=== PATIENT | female | born 1990 | race Caucasian/White ===

== ENCOUNTER 2021-03-17 12:58 | Emergency (ER) | payer BC ==
--- OUTSIDE RECORDS SUMMARY | 2021-03-17 13:04 | XMS REPORT | Continuity of Care Document ---
:1990 Author Organization [facility] t Address [address] [place] [address] Care Team Providers Name Role Phone Asked, Pcp Primary Care Physician Unavailable Provider, Urgent Care Attending Clinician Unavailable Balaji GILLETTE, E Attending Clinician Problems This patient has no known problems. Allergies, Adverse Reactions, Alerts This patient has no known allergies or adverse reactions. Family History Family Member Diagnosis Comments Start Date Stop Date Source Natural mother Cancer [facility] Social History Social Habit Start Date Stop Date Quantity Comments Source Alcohol intake 2017-04-06 2017-04-06 Current drinker Alannaht on Mandaen 00:00:00 00:00:00 of alcohol (finding) Sex Ass[birth year] [facility] ethodist 00:00:00 00:00:00 Smoking Status Start Date Stop Date Source Never smoker Britt Methodis t Medications This patient has no known medications. Procedures This patient has no known procedures. Plan of Care Planned Activity Planned Date Details Comments Source Future Scheduled 2021-04-17 INFLUENZA VACCINE Radha n Mandaen Test 00:00:00 [code = INFLUENZA VACCINE] Future Scheduled 2009-01-25 Screening for [facility] thodist Test 00:00:00 malignant neoplasm of cervix (procedure) [code = 761680349] Future Scheduled 2000 COVID-19 VACCINE (1) Dayday deyanira Mandaen Test 00:00:00 [code = COVID-19 VACCINE (1)] Encounters Start End Encounter Admission Attending Care Care Encounter Source Date/Time Date/Time Type Type Clinicians Facility Department ID 2021-03-13 2021-03-13 Urgent Poonam WVJAY [id number] 13:34:57 15:56:38 [facility] [id number] Care [place] [id number] Professio [phone] nal [address] 2021-03-13 2021-03-13 Telephone Balaji [facility] [id number] 00:00:00 00:00:00 [facility] [id number] [place] [id number] Professio [phone] nal [address] Results This patient has no known results.
[2021-03-17 13:57] LABS: Basophils % 0.3 % (0-1.3); Hematocrit 33.1 % (36.0-45.0); Lymphocytes % 13.7 % (15.3-44.8); MPV 7.2 fL (7.6-11.3); RBC Red Blood Cell Count 4.09 M/uL (3.86-4.86)
[2021-03-17 14:10] LABS: Urine Blood 3+ (Negative); Urine Glucose Negative (Negative); Urine Protein 3+ (Negative); Urine pH 6.5 (5.0-7.0)
[2021-03-17 14:16] LABS: ALT/SGPT 37 U/L (12-78); AST/SGOT 26 U/L (15-37); Albumin 3.2 g/dL (3.4-5.0); Alkaline Phosphatase 108 U/L (45-117); BUN Blood Urea Nitrogen 11 mg/dL (7-18); Bicarbonate 26 mmol/L (21-32); Bilirubin Direct 0.3 mg/dL (0-0.2); Bilirubin Total 0.5 mg/dL (0.2-1.0); Glucose Level 142 mg/dL (74-106); Lipase 73 U/L (73-393); Protein, Total 7.5 g/dL (6.4-8.2); Sodium Level 136 mmol/L (136-145)
[2021-03-17] MEDS ORDERED: NA CHLORIDE 0.9% 1,000 ML ONE (14:33)
[2021-03-17 14:46] LABS: Urine Bacteria <20 /HPF (<20); Urine Mucus 1+ /HPF (NONE SEEN)
--- NOTE | 2021-03-17 16:25 | RAD REPORT ---
EXAM DESCRIPTION: CT - Abdomen Pelvis W Contrast - 03/17/2021 4:09 pm CLINICAL HISTORY: ABD PAIN COMPARISON: No comparisons TECHNIQUE: Biphasic, helical CT imaging of the abdomen and pelvis was performed following 100 ml non -ionic IV contrast. No oral contrast given. All CT scans are performed using dose optimization technique as appropriate and may include automated exposure control or mA/KV adjustment according to patient size. FINDINGS: No suspicious findings in the lung bases. The liver, spleen, and pancreas show no suspicious findings. Gallbladder and biliary tree are also wi thout suspicious finding. Moderate severity diminished attenuation involves a substantial portion of the right kidney. No necro tic or abscessed component. Only minimal stranding is seen in the perinephric fat. No hydronephrosis of either kidney. No obstructing or nonobstructing calculi. No enhancement abnormality of the left ki dney. No solid mass lesions seen. No bladder abnormalities. No adrenal abnormalities. No uterine or right ovary abnormality identified. Left ovary contains a 2.7 centimeter cyst along wit h additional small follicles. Physiologic quantity of free fluid is present in the cul de sac. No dilated bowel loops or bowel wall thickening. No free air, free fluid or inflammatory stranding. No mass or bulky lymphadenopathy. There is a normal variant laxity of the anterior abdominal wall wi th a anterior convex bowing that extends to the skin surface at the umbilicus. No suspicious bony findings. IMPRESSION: Moderate severity right-sided pyelonephritis and right ureteritis. No abscess or emergen t complication.
[2021-03-17] MEDS ORDERED: CEFTRIAXONE/SWI 1gm 2 GM/20 ML SYR ONE (17:10)
--- NOTE | 2021-03-17 17:33 | EDPHYS ---
Physician Documentation [facility] Name: Carlee Garay Age: 31 yrs Sex: Female : 1990 Arrival Date: 03/17/2021 Time: 13:00 Bed 26 Private MD: ED Physician Dimitrios Phillip HPI: 03/17 14:49 This 31 yrs old Female presents to ER via Ambulatory with complaints of Flank jmm Pain. 14:49 Onset: The symptoms/episode began/occurred gradually, 5 day(s) ago. Modifying factors: jmm The symptoms are alleviated by nothing. the symptoms are aggravated by nothing. Associated signs and symptoms: Pertinent positives: decreased appetite. The patient has not experienced similar symptoms in the past. This is a 31 year old female with no chronic medical conditions that presents to the ED with complaints of right sided back pain which radiates from the low back top the mid back. Denies vomiting, diarrhea but states having a decreased appetite. Denies abdominal pain. . 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 - Social history:: Smoking status: Patient denies any tobacco usage or history of. ROS: 14:49 Constitutional: Negative for fever, chills, and weight loss, Cardiovascular: Negative jmm for chest pain, palpitations, and edema, Respiratory: Negative for shortness of breath, cough, wheezing, and pleuritic chest pain. 14:49 Back: Positive for pain at rest. 14:49 All other systems are negative. Exam: 14:49 Constitutional: This is a well developed, well nourished patient who is awake, alert, jmm and in no acute distress. Head/Face: atraumatic. Eyes: EOMI, no conjunctival erythema appreciated ENT: Moist Mucus Membranes Neck: Trachea midline, Supple Chest/axilla: Normal chest wall appearance and motion. Cardiovascular: Regular rate and rhythm. No edema appreciated Respiratory: Normal respirations, no respiratory distress appreciated Abdomen/GI: Non distended, soft 14:49 Skin: General appearance color normal MS/ Extremity: Moves all extremities, no obvious deformities appreciated, no edema noted to the lower extremities Neuro: Awake and alert, normal gait Psych: Behavior is normal, Mood is normal, Patient is cooperative and pleasant 14:49 Back: CVA tenderness, that is mild, is noted on the right. Vital Signs: 13:14 BP 127 / 91; Pulse 119; Resp 18; Temp 97.4; Pulse Ox 99% on R/A; Weight 64.41 kg; ph Height 5 ft. 3 in. (160.02 cm); 13:48 BP 127 / 100; Pulse 104; Resp 18; Pulse Ox 100% on R/A; Pain 8/10; ld1 15:22 BP 118 / 87; Pulse 89; Resp 18; Pulse Ox 100% ; ld1 16:50 BP 120 / 84; Pulse 88; Resp 18; Pulse Ox 100% ; ld1 13:14 Body Mass Index 25.15 (64.41 kg, 160.02 cm) ph MDM: 13:13 Patient medically screened. ankur 17:29 Data reviewed: vital signs, nurses notes. Counseling: I had a detailed discussion with rhett the patient and/or guardian regarding: the historical points, exam findings, and any diagnostic results supporting the discharge/admit diagnosis, lab results, radiology results, the need for outpatient follow up, to return to the emergency department if symptoms worsen or persist or if there are any questions or concerns that arise at home. ED course: Patient is alert and non toxic in appearance in the ED. No signs of sepsis. Patient is advised to follow up with pcp for further evaluation. Patient understood and agrees with the plan of care. . 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 [facility] 03/17 13:39 Order name: Basic Metabolic Panel; Complete Time: 14:25 [facility] 03/17 13:39 Order name: CBC with Diff; Complete Time: 13:59 [facility] 03/17 13:39 Order name: Hepatic Function; Complete Time: 14:25 [facility] 03/17 13:39 Order name: Lipase; Complete Time: 14:25 [facility] 03/17 14:10 Order name: Urine Microscopic Only [facility] 03/17 14:10 Order name: Urine Culture [facility] 03/17 13:39 Order name: IV Saline Lock; Complete Time: 13:48 [facility] 03/17 13:39 Order name: Labs collected and sent; Complete Time: 13:48 [facility] 03/17 13:39 Order name: Urine Dipstick-Ancillary (obtain specimen); Complete Time: 14:10 [facility] 03/17 14:10 Order name: Urine Dipstick-Ancillary; Complete Time: 14:25 [facility] 03/17 14:10 Order name: Urine Microscopic Only; Complete Time: 14:49 [facility] 03/17 15:32 Order name: CT Abd/Pelvis - IV Contrast Only; Complete Time: 16:40 [facility] 03/17 13:39 Order name: Urine Test (obtain specimen); Complete Time: 14:10 [facility] Administered Medications: 14:15 Drug: NS 0.9% 1000 ml Route: IV; Rate: 1 bolus; Site: right antecubital; ld1 16:52 Follow up: Response: No adverse reaction; IV Status: Completed infusion ld1 16:52 Drug: Rocephin (cefTRIAXone) 2 grams Route: IV; Rate: calculated rate; Site: right ld1 antecubital; Disposition: 03/18 07:33 Co-signature as Attending Physician, Dimitrios Phillip MD I agree with the assessment and ankur plan of care. Disposition Summary: 03/17/21 17:32 Discharge Ordered [facility]: [facility] Condition: Stable [facility] Diagnosis - Pyelonephritis acute [facility]up: [facility] - With: Private Physician - When: 2 - 3 days - Reason: Recheck today's complaints, Continuance of care, Re-evaluation by your physician Discharge Instructions: - Discharge Summary Sheet [facility] - Pyelonephritis, Adult [facility] Forms: - Medication Reconciliation Form [facility] - Thank You Letter [facility] - Antibiotic Education [facility] - Prescription Opioid Use [facility] Prescriptions: - Tramadol 50 mg Oral Tablet - take 1 tablet by ORAL route every 8 hours as needed; 12 tablet; Refills: 0, [facility] Product Selection Permitted - cefpodoxime 200 mg Oral Tablet - take 1 tablet by ORAL route every 12 hours for 10 days with food; 20 tablet; [facility] Refills: 0, Product Selection Permitted Signatures: Dispatcher [employer] Dimitrios Don MD MD cha Mickail, Joel, PA PA Vi Cristina RN RN Zaida Jiang RN RN ld1
--- NOTE | 2021-03-17 17:33 | ER ---
Nurse's Notes [facility] Name: Carlee Garay Age: 31 yrs Sex: Female : 1990 Arrival Date: 03/17/2021 Time: 13:00 Bed 26 Private MD: Diagnosis: Pyelonephritis acute Presentation: 03/17 13:14 Chief complaint: Patient states: R low back pain since last week, has been seen at urgent care and PCP but has not found cause. Also c/o chills, fatigue, N/V, denies urinary symptoms. Coronavirus screen: Client denies travel out of the [place] in the last 14 days. At this time, the client does not indicate any symptoms associated with coronavirus-19. Ebola Screen: No symptoms or risks identified at this time. Initial Sepsis Screen: Does the patient meet any 2 criteria? No. Patient's initial sepsis screen is negative. Does the patient have a suspected source of infection? No. Patient's initial sepsis screen is negative. Risk Assessment: Do you want to hurt yourself or someone else? Patient reports no desire to harm self or others. Onset of symptoms was March 17, 2021. 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 - Social history:: Smoking status: Patient denies any tobacco usage or history of. Screenin:48 Abuse screen: Denies threats or abuse. Denies injuries from another. Nutritional ld1 screening: No deficits noted. Tuberculosis screening: No symptoms or risk factors identified. Fall Risk None identified. Assessment: 13:48 General: Appears in no apparent distress. comfortable, Behavior is calm, cooperative, ld1 appropriate for age. Pain: Complains of pain in right low back Pain does not radiate. Pain currently is 8 out of 10 on a pain scale. Quality of pain is described as throbbing, Pain began 2-3 days ago. Is continuous. Neuro: Level of Consciousness is awake, alert, obeys commands, Oriented to person, place, time, situation. Cardiovascular: Capillary refill < 3 seconds Patient's skin is warm and dry. Respiratory: Airway is patent Respiratory effort is even, unlabored, Respiratory pattern is regular, symmetrical. GI: Abdomen is flat, non-distended. : Urine is clear. EENT: No signs and/or symptoms were reported regarding the EENT system. Derm: No signs and/or symptoms reported regarding the dermatologic system. Musculoskeletal: No signs and/or symptoms reported regarding the musculoskeletal system. 15:22 Reassessment: Patient appears in no apparent distress at this time. Patient is alert, ld1 oriented x 3, equal unlabored respirations, skin warm/dry/pink. 16:50 Reassessment: Patient appears in no apparent distress at this time. Patient is alert, ld1 oriented x 3, equal unlabored respirations, skin warm/dry/pink. Vital Signs: 13:14 BP 127 / 91; Pulse 119; Resp 18; Temp 97.4; Pulse Ox 99% on R/A; Weight 64.41 kg; ph Height 5 ft. 3 in. (160.02 cm); 13:48 BP 127 / 100; Pulse 104; Resp 18; Pulse Ox 100% on R/A; Pain 8/10; ld1 15:22 BP 118 / 87; Pulse 89; Resp 18; Pulse Ox 100% ; ld1 16:50 BP 120 / 84; Pulse 88; Resp 18; Pulse Ox 100% ; ld1 13:14 Body Mass Index 25.15 (64.41 kg, 160.02 cm) ph ED Course: 13:00 Patient arrived in ED. as 13:12 Dexter Oliva PA is PHCP. [facility] 13:12 Dimitrios Phillip MD is Attending Physician. [facility] 13:16 Triage completed. ph 13:17 Arm band placed on Patient placed in an exam room. ph 13:25 Zaida Jiang RN is Primary Nurse. ld1 13:30 Dexter Oliva PA is PHCP. jmm 13:48 Patient has correct armband on for positive identification. Placed in gown. Bed in low ld1 position. Call light in reach. Side rails up X2. Pulse ox on. NIBP on. 13:48 No provider procedures requiring assistance completed. Inserted saline lock: 20 gauge ld1 in right antecubital area, using aseptic technique. Blood collected. 14:11 Urine Microscopic Only Sent. ld1 14:11 Urine Microscopic Only Sent. ld1 16:09 CT Abd/Pelvis - IV Contrast Only In Process Unspecified. EDMS 17:49 IV discontinued, intact, bleeding controlled, No redness/swelling at site. ld1 Administered Medications: 14:15 Drug: NS 0.9% 1000 ml Route: IV; Rate: 1 bolus; Site: right antecubital; ld1 16:52 Follow up: Response: No adverse reaction; IV Status: Completed infusion ld1 16:52 Drug: Rocephin (cefTRIAXone) 2 grams Route: IV; Rate: calculated rate; Site: right ld1 antecubital; Outcome: 17:32 Discharge ordered by . rhett 17:48 Discharged to home ambulatory. ld1 17:48 Condition: stable 17:48 Discharge instructions given to patient, Instructed on discharge instructions, follow up and referral plans. medication usage, Demonstrated understanding of instructions, follow-up care, medications. 17:49 Patient left the ED. ld1 Signatures: Dispatcher [employer] EDMS Dexter Oliva PA PA jmm Martinez, Amelia as Vi Momin, RN RN Zaida Jiang, LICHA RN ld1
[2021-03-17 18:15] VITALS: TEMP 97.4
[2021-03-17 18:22] VITALS: O2SAT 100
[2021-03-17 18:34] VITALS: BP 120/84
== END 2021-03-17 17:49 | disposition home or self-care (01) ==
LOC: ER 12:58
DX: N10 Acute pyelonephritis (principal)
CPT/HCPCS: 96361; 85025; 87086; 80048; 36415; 80076; 83690; 74177; 96374; 99284; Q9967; J0696; J7030; 81003; 81015; 87088